=== PATIENT | female | born 1955 | race Caucasian/White ===

== ENCOUNTER 2025-01-04 21:08 | Emergency (ER) | payer MEDICARE, BC ==
[~2025-01-04] VITALS: Ht 175.3 cm; Wt 90.1 kg
[2025-01-04 21:15] VITALS: TEMP 97.4
--- NOTE | 2025-01-04 21:27 | ELECTROCARDIOGRAPH REPORT ---
[facility] Test Date: 2025-01-04 Test Time: 21:25:06 Pat Name: DESTINY MCWILLIAMS Department: [facility]- Patient ID: [facility]-[id number] Room: Gender: F Community Organizer: : [id number] Requested By: NORAH BENITEZ Order Number: [id number] Reading MD: Dr. KIM Weinstein Measurements Intervals [place] Rate: 163 P: 0 DC: 0 QRS: 66 QRSD: 87 T: -69 QT: 249 QTc: 410 Interpretive Statements Atrial fibrillation with rapid V-rate Low voltage, precordial leads Repolarization abnormality, prob rate related Baseline wander in lead(s) V2 Electronically Signed On 01-05-2025 16:52:[address] KIM Weinstein Please click the below link to view image of tracing.
[2025-01-04 21:55] LABS: MEAN PLATELET VOLUME 8.6 FL (7.4-10.4); RED CELL DISTRIBUTION WIDTH 13.6 % (11.5-14.5)
[2025-01-04 22:08] LABS: CREATININE 0.83 MG/DL (0.40-0.90); PRO BRAIN NATRIURETIC PEPTIDE 157 PG/ML (0-125); TOTAL CARBON DIOXIDE 25.5 MMOL/L (24-32); eCRCL 68 ML/MIN; eGFR 68 ML/MIN
--- NOTE | 2025-01-04 22:10 | RADIOLOGY REPORT ---
CHEST RADIOGRAPH Indication: CP Technique: 1 view Comparison: None FINDINGS: Lines and Tubes: None. Lungs/Pleura: No focal consolidation, pleural effusion or pneumothorax. Cardiomediastinum: Unremarkable. Other: No acute osseous abnormality. IMPRESSION: 1. No acute cardiopulmonary abnormality.
--- NOTE | 2025-01-04 22:22 | Physician Documentation ---
History of Present Illness ~ Chief Complaint: Palpitations Stated Complaint: RAPID HEART RATE Time Seen by MD: 22:20 HPI Patient presents to the emergency room with sudden onset feeling as if her heart is racing. Symptoms started a proximally two or 3 hours prior to arrival. She was sitting in her computer when it started. No chest pain. She was seen by Dr. Crowell for palpitations previously with a Holter monitor with negative findings. She has also had an echo. She states she has had similar feelings within this past year of her heart racing that has never able to find if that has atrial fibrillation or not. She did drink some ice tea today but denies any excessive alcohol caffeine or drug use. She states she has been staying hydrated Medication Reconciliation Allergies: Coded Allergies: ciprofloxacin (Verified Allergy, Intermediate, 01/04/25) sulfamethoxazole (Verified Allergy, Intermediate, 01/04/25) trimethoprim (Verified Allergy, Intermediate, 01/04/25) Review of Systems ROS All review of systems negative except as per HPI Physical Exam Vital Signs: Temperature: 97.4, Source: Temporal, Heart Rate: 105, Respiratory Rate: 14, BP: 153/102, Pulse Oximetry: 96, Weight: 90.100 Physical Exam General: Patient is awake, alert, oriented x4 in no acute distress and well appearing.~ Head: Normocephalic and atraumatic. Eyes: Conjunctival normal. EOMI. PERRL. ENT: Mucous membranes moist. Neck: Supple, trachea is midline. Chest: Clear to auscultation bilaterally without rales, rhonchi, or wheezes. There is no accessory muscle use or retractions. Cardiac: Tachycardic irregular without murmurs, gallops, or rubs. Abd: Soft, nondistended, nontender, with normoactive bowel sounds. No guarding, rebound, or rigidity. Progress Results/Orders Results/Orders Orders - TIMOTHY PICKENS MD Chest,Single View (01/04/25 21:57) Monitor (01/04/25 21:21) Saline Lock (01/04/25 21:21) Oxygen (01/04/25 21:21) Cbc/Diff (01/04/25 21:21) Hs Troponin I W Calculations (01/04/25 23:21) Hs Troponin I W Calculations (01/05/25 00:21) Man Diff (01/04/25 21:32) Normal Saline 1000ml (0.9% Sodium Chlori (01/04/25 22:40) Pathology Review (01/04/25 21:32) Completed Orders - TIMOTHY PICKENS MD Chest,Single View (01/04/25 21:57) BMP (01/04/25 21:21) PBNP (01/04/25 21:21) Electrocardiogram (01/04/25 21:21) Hs Troponin I W Calculations (01/04/25 21:21) Diltiazem Iv (Cardizem Iv 5mg/Ml Inj.) (01/04/25 22:40) Medications Received in ER Medications (Trade) Dose Ordered Sig/Leny Route PRN Reason Start Time Stop Time Status Last Admin Dose Admin Sodium Chloride 1,000 ml @ 1,000 mls/hr ONCE ONCE IV 01/04/25 22:40 01/04/25 23:39 01/04/25 22:48 1,000 MLS/HR (Cardizem IV 5mg/ ml inj.) 15 mg ONCE ONCE IV 01/04/25 22:40 01/04/25 22:41 DC 01/04/25 22:47 15 MG Vital Signs 01/04/25 01/04/25 01/04/25 01/04/25 21:15 22:47 22:56 22:58 Temp 97.4 Pulse 105 167 92 Resp 14 14 B/P (MAP) 153/102 120/95 131/97 (108) Pulse Ox 96 96 O2 Flow Rate 0 Laboratory Tests Test 01/04/25 21:32 White Blood Count 13.8 H Red Blood Count 4.55 Hemoglobin 14.7 Hematocrit 43.1 Mean Corpuscular Volume 94.8 Mean Corpuscular Hemoglobin 32.4 H Mean Corpuscular Hemoglobin Concent 34.2 Red Cell Distribution Width 13.6 Platelet Count 263 Mean Platelet Volume 8.6 Neutrophils (%) (Auto) 27.3 L Lymphocytes (%) (Auto) 63.8 H Monocytes (%) (Auto) 5.9 Eosinophils (%) (Auto) 2.0 Basophils (%) (Auto) 1.0 Neutrophils # (Auto) 3.8 Lymphocytes # (Auto) 8.8 H Monocytes # (Auto) 0.8 Eosinophils # (Auto) 0.3 Basophils # (Auto) 0.1 CBC Comment Differential Total Cells Counted 100 Neutrophils % (Manual) 28.0 L Lymphocytes % (Manual) 58.0 H Monocytes % (Manual) 7.0 Eosinophils % (Manual) 3.0 Metamyelocytes % 3.0 H Myelocytes % 1.0 H Platelet Estimate Normal Red Blood Cell Morphology Perf Basophilic Stippling Sodium Level 141 Potassium Level 4.1 Chloride Level 106 Carbon Dioxide Level 25.5 Anion Gap 10 Blood Urea Nitrogen 21 H Creatinine 0.83 Estimated GFR/1.73 m2 68 BUN/Creatinine Ratio 25.3 H Glucose Level 127 H Calcium Level 9.2 Troponin I High Sensitivity 18 Pro-B-Type Natriuretic Peptide 157 H Albumin 4.1 Chemistry Comments EKG/XRAY/CT/US/VASC/MRI EKG : Additional Comment EKG interpreted by myself shows time of 03/07/2024, rate 163, atrial fibrillation, normal axis, no ST changes Medical Decision Making Additional information obtaine: N/A Findings Patient presents to the emergency room for evaluation of racing heartbeat. Differentials include but are not limited to cardiac arrhythmia, electrolyte disturbances, ACS, muscle spasm and chest wall therefore emergent labs ordered. EKG shows atrial fibrillation with rapid ventricular response. This is a new diagnosis. Cardizem administered with return of sinus rhythm. Patient has a established with a canceling machine operator in his a reassuring stress test and echo. In this light he had not feel patient requires admission. We will begin anticoagulation with instructions to follow up with her canceling machine operator as soon as possible. ER precautions regarding return of symptoms or syncope discussed. Differential Dx:Considerations: Include: angina / CO, atrial dysrhythmia, atrial fibrillation, atrial flutter, MAT, PACs, PSVT, sinus tachycardia, WPW, 1st degree AV block, 2nd degree AVB-type 1, 2nd degree AVB-type 2, 3rd degree AV block, PVCs, torsades de pointes, ventricular fibrillation, ventricular tac hycardia, other Differential Dx:Considerations: Include anxiety/panic attack, Include digoxin toxicity, Include electrolyte disorder, Include heart failure, Include hyperthyroidism, Include hyperventilation, Include hypoxia, Include pacemaker malfunction, Include pulmonary embolus, Include renal failure, Include other Departure Disposition: HOME / SELF CARE / HOMELESS Impression: Primary Impression: Atrial fibrillation Condition: Improved Discharge Instructions: Atrial Fibrillation, [id number] Additional Instructions: Call your canceling machine operator tomorrow to arrange for close follow up for new onset atrial fibrillation Referrals: NO PRIMARY CARE PROVIDER (PCP) Prescriptions Apixaban (ELIQUIS) 5 Mg Tablet 1 TAB PO Q12H, #15 TAB 0 Refills Prov: TIMOTHY PICKENS MD 01/04/25 Signature Scribe Signature: No scribe Attestation: The note accurately reflects work and decisions made by me.Timothy Pickens MD 01/04/25 23:33 TIMOTHY PICKENS MD Jan 04, 2025 22:22
[2025-01-04] MEDS: diltiazem 5mg/ml 5ml inj. IV ONE (22:47)
[2025-01-04] MEDS: normal saline 1000ml 1,000 ML IV ONE (22:48)
[2025-01-04 22:53] LABS: EOSINOPHILS % (MANUAL) 3.0 % (0-6); LYMPHOCYTES % (MANUAL) 58.0 % (21-51); METAMYLEOCYTES% (MANUAL) 3.0 % (0-0); MONOCYTES % (MANUAL) 7.0 % (2-12); MYELOCYTES % (MANUAL) 1.0 % (0-0); NEUTROPHILS % (MANUAL) 28.0 % (42-75)
[2025-01-04 22:54] LABS: PLATELET ESTIMATE NORMAL
[2025-01-04] MEDS ORDERED: APIX5TAB3 PO (23:33)
[2025-01-04] MEDS: enoxaparin 100mg/ml syringe SUBCUT ONE (23:50)
[2025-01-05] VITALS: BP 143/97; PULSE 87; RESP 18; O2SAT 98
== END 2025-01-05 00:02 | disposition home or self-care (01) ==
LOC: ER 21:09
DX: I48.91 Unspecified atrial fibrillation (principal); Z88.1 Allergy status to other antibiotic agents; Z88.2 Allergy status to sulfonamides; Z88.8 Allergy status to other drugs, medicaments and biological substances
CPT/HCPCS: 36415; 71045; 80048; 83880; 84484; 85007; 85025; 93005; 96361; 96372; 96374; 99285; J1650; J3490; J7030